=== PATIENT | male | born 1990 | race African-American/Black ===

== ENCOUNTER 2020-09-07 22:52 | Emergency (ER) | payer SELFPAY ==
[2020-09-07 22:53] VITALS: BP 138/89; PULSE 68; RESP 16; TEMP 36.4; O2SAT 100
--- NOTE | 2020-09-07 23:31 | ED.GENADULT ---
HPI - General Adult General Chief complaint: Dental/Oral Stated complaint: LOCO, pulled his tooth out Time Seen by Provider: 09/07/20 23:08 History of Present Illness HPI narrative: Patient a 30-year-old gentleman who presents the emergency department with chief complaint of headache. The patient reports that he had a cracked molar and he started having a headache today in the occipital region of his head. Patient denies photophobia denies nausea denies vomiting reports that he has not taken any Tylenol or ibuprofen for the headache. The patient decided that because it was hurting he would go ahead and pull out the molar that was cracked. Patient reports that he remove the molar and it was mostly intact and states that he was able to remove the base of one of the roots that was left over. Patient states that he still has the headache after he is removed to the tooth and that he has pain in the area where he remove the tooth Review of Systems Review of Systems: Narrative: A 10 system review of systems was completed on the patient and is negative except for what is stated in the HPI. Nursing and ancillary documentation was reviewed. PMFSH Comments Patient denies past medical history Social history patient denies illicit drug use Exam Narrative: Exam Narrative: GENERAL: Well-appearing, well-nourished, and in no acute distress. HEAD: Normocephalic, atraumatic. EYES: PERRLA and EOMI. ENT: Nares clear, no rhinorrhea or epistaxis. Mucous membranes moist. There is a extracted molar from the right upper maxillary area. There is no purulent drainage there is no active bleeding NECK: Supple. CHEST: Clear to auscultation. No respiratory distress. HEART: Regular rate and rhythm. No murmur heard. Normal peripheral pulses. ABDOMEN: Soft, nontender, nondistended, normal active bowel sounds. EXTREMITIES: Normal range of motion. No edema. SKIN: Warm, dry, no rash. NEURO: No focal deficits. Alert and oriented x3. PSYCH: Normal mood and affect. Course Vital Signs Vital signs: Vital Signs Temperature 36.4 C L 09/07/20 22:53 Pulse Rate 68 09/07/20 22:53 Respiratory Rate 16 09/07/20 22:53 Blood Pressure 138/89 09/07/20 22:53 Pulse Oximetry 100 09/07/20 22:53 Temperature 36.4 C L 09/07/20 22:53 Pulse Rate 68 09/07/20 22:53 Respiratory Rate 16 09/07/20 22:53 Blood Pressure 138/89 09/07/20 22:53 Pulse Oximetry 100 09/07/20 22:53 Medical Decision Making Vital Signs Vital Signs: Vital Signs Temperature 36.4 C L 09/07/20 22:53 Pulse Rate 68 09/07/20 22:53 Respiratory Rate 16 09/07/20 22:53 Blood Pressure 138/89 09/07/20 22:53 Pulse Oximetry 100 09/07/20 22:53 Temperature 36.4 C L 09/07/20 22:53 Pulse Rate 68 09/07/20 22:53 Respiratory Rate 16 09/07/20 22:53 Blood Pressure 138/89 09/07/20 22:53 Pulse Oximetry 100 09/07/20 22:53 Discharge Plan Discharge Clinical Impression: Toothache Fracture of tooth Qualifiers: Encounter type: initial encounter Fracture type: closed Qualified Code(s): S02.5XXA - Fracture of tooth (traumatic), initial encounter for closed fracture Headache Qualifiers: Headache type: unspecified Headache chronicity pattern: acute headache Intractability: not intractable Qualified Code(s): R51.9 - Headache, unspecified Patient Disposition: Home, Self-Care Condition: Stable Instructions: Antibiotic Form, Acute Headache (ED), Toothache (ED) Prescriptions: New amoxicillin 500 mg capsule 500 mg PO Q12H Qty: 20 RF: 0 ibuprofen 800 mg tablet 800 mg PO TID PRN (Reason: pain) Qty: 21 RF: 0 Follow-up/Referrals: PHYSICIAN,[employer]OMOTIVE DESIGNER [Primary Care Provider] - Jonathan Mason DO [Physician] - Time of Disposition: 00:08
[2020-09-07] MEDS: IBUPROFEN 400 MG TABLET 800 MG PO (23:34)
[2020-09-08 00:20] VITALS: BP 128/75; PULSE 62; RESP 18; O2SAT 99
== END 2020-09-08 00:21 | disposition home or self-care (01) ==
PROVIDERS: Emergency Provider Emergency Medicine
DX: R51.9 Headache, unspecified (principal); K03.81 Cracked tooth
CPT/HCPCS: 99283; A9270

== ENCOUNTER 2021-02-01 20:56 | Emergency (ER) | payer SELFPAY ==
[2021-02-01 20:57] VITALS: BP 134/79; PULSE 66; RESP 17; TEMP 36.8; O2SAT 100
--- NOTE | 2021-02-01 21:23 | PC.NURSE ---
pt here c/o right upper dental pain and swelling x 2 days. no dentist. visible swelling to right cheek. speech clear. patent airway. rates pain 04/06.
--- NOTE | 2021-02-01 21:33 | ED.GENADULT ---
HPI - General Adult General Chief complaint: Dental/Oral Stated complaint: toothache Time Seen by Provider: 02/01/21 21:12 Source: patient Mode of arrival: ambulatory Limitations: no limitations History of Present Illness HPI narrative: Patient presents for evaluation of right upper dental pain since yesterday. He indicates he has a known dental fracture in the affected area. Pain is constant, throbbing, rated 10/ 10 in severity. No fever, chills, trismus, nausea, vomiting, problems handling secretions. He has not taken anything for pain. No additional complaints or concerns. Related Data Allergies Allergy/AdvReac Type Severity Reaction Status Date / Time No Known Allergies Allergy Verified 02/01/21 20:57 Review of Systems Review of Systems: CONSTITUTIONAL: Denies fever, chills, or sweats. EYES: Denies visual changes, redness, or discharge. ENT: Reports right upper dental pain. Denies rhinorrhea, congestion, sore throat, or otalgia. CARDIOVASCULAR: Denies chest pain, palpitations, or edema. RESPIRATORY: Denies cough or dyspnea. GASTROINTESTINAL: Denies abdominal pain, nausea, vomiting, or diarrhea. GENITOURINARY: Denies dysuria or hematuria. SKIN: Denies rash or itching. MUSCULOSKELETAL: Denies back pain, joint pain, or myalgia. NEUROLOGIC: Denies headache, numbness, dizziness, or weakness. PSYCHIATRIC: Denies anxiety or depression. [facility] Past Medical History Medical History (Updated 02/01/21 @ 21:37 by Brandon Kam, [facility], ) No pertinent past medical history Surgical History Surgical History No pertinent past surgical history Family History Family History (Updated 02/01/21 @ 21:35 by Brandon Kam, [facility], ) Mother No pertinent past medical history Social History Social History Smoking status: Former smoker Alcohol intake: former Substance use: never Additional living arrangements comments: Lives with girlfriend Gender identity (if verbalized by the patient): Male Sexual Orientation (if Verbalized by the Patient): Straight or Heterosexual Spiritual care concerns: No Exam Narrative: GENERAL: Well-appearing, well-nourished, and in no acute distress. HEAD: Normocephalic, atraumatic. EYES: PERRLA and EOMI. ENT: Nares clear, no rhinorrhea or epistaxis. Mucous membranes moist. Oropharynx without tonsillar hypertrophy exudate or other lesions. Tooth #4 is fractured and eroded down to the gumline. No palpable or visible abscess. No trismus. Bilateral TMs pearly mary nonbulging NECK: Supple. No adenopathy or masses. No carotid bruits or JVD CHEST: Clear to auscultation. No respiratory distress. No wheezes rales or rhonchi HEART: Regular rate and rhythm. No murmur heard. Normal peripheral pulses. ABDOMEN: Soft, nontender, nondistended, normal active bowel sounds. EXTREMITIES: Normal range of motion. No edema. SKIN: Warm, dry, no rash. NEURO: No focal deficits. Alert and oriented x3. PSYCH: Normal mood and affect. Course Course Emergency Course: This is a 22-year-old male who presented with right upper dental pain since yesterday. Physical exam reveals a dental fracture in the affected area. Will discharge with oral antibiotics, ibuprofen and a few hydrocodone with instructions to follow-up outpatient for further evaluation and treatment. Return for worsening symptoms. Patient agreed with plan of care. Vital Signs Vital signs: Vital Signs Temperature 36.8 C 02/01/21 20:57 Pulse Rate 66 02/01/21 20:57 Respiratory Rate 02/01/21 20:57 Blood Pressure 134/79 02/01/21 20:57 Pulse Oximetry 100 02/01/21 20:57 Temperature 36.8 C 02/01/21 20:57 Pulse Rate 66 02/01/21 20:57 Respiratory Rate 17 02/01/21 20:57 Blood Pressure 134/79 02/01/21 20:57 Pulse Oximetry 100 02/01/21 20:57 Medical Decision Making Differential
== END 2021-02-01 22:01 | disposition home or self-care (01) ==
PROVIDERS: Emergency Provider Nurse Practitioner
DX: K03.81 Cracked tooth (principal); Z87.891 Personal history of nicotine dependence
CPT/HCPCS: 99283